=== PATIENT | female | born 1970 | race Caucasian/White ===

== ENCOUNTER 2021-07-11 12:05 | Day surgery (SDC) | payer OTHER, SELFPAY ==
--- NOTE | 2021-07-04 17:03 | PCM.HP.BLA ---
History and Physical Date of Admission: 07/11/21 HPI: The patient is a 51 year old female presenting for pre-operative visit. 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 Procedure discussed along with risks, benefits and complications. Other alternatives discussed for management. Consent form signed? Yes. ? ? PAST MEDICAL HISTORY PAST MEDICAL HISTORY Diagnosis Date ? Allergic rhinitis, cause unspecified ? ? Breast cancer (HCC) 2020 ? Encounter for insertion or removal of intrauterine contraceptive device 07/12/2006 ? Mirena ? Factor 5 Leiden mutation, homorozygous (HCC)--confirmed 2020 ? Hypertension ? ? with 1st only ? Meniere disease ? ? Snoring ? ? Unspecified asthma(493.90) ? ? ? PAST SURGICAL HISTORY PAST SURGICAL HISTORY Procedure Laterality Date ? BX BREAST NEEDLE CORE W/O IMAGING GUIDANCE SPX Left 02/13/2021 ? DELIVERY ONLY ? ? ? , low cervical ? CLSR VESICOVAGINAL FISTUL AABDL APPROACH ? ? ? COLONOSCOPY FLX DX W/COLLJ SPEC WHEN PFRMD ? 06/02/2018 ? Colonoscopy ? DILATION & CURETTAGE DX&/THER NONOBSTETRIC ? 1997 ? Dilation & curettage ? EXC CYST/ABERRANT BREAST TISSUE OPEN 1/> LESION ? 1990 ? right breast ? INSERT INTRAUTERINE DEVICE ? 07/12/2006, 06/2011,08/03/2016 ? Mirena ? PULMONARY FUNCTION TEST ? 07/02/1998 ? ? ? CURRENT MEDICATIONS Current Outpatient Medications Medication Sig Dispense Refill ? ProAir RespiClick 90 mcg/actuation breath activated (albuterol sulfate) Inhale 2 Puffs as instructed as needed for wheezing/shortness of breath. 1 Each 1 ? Cholecalciferol, Vitamin D3, (D3-2000) 50 mcg (2,000 unit) cap ? Cetirizine (ZYRTEC) 10 mg cap Take 1 capsule by mouth as needed. ? ? ? triamterene-hydrochlorothiazide 37.5-25 mg per capsule Take 1 capsule by mouth as needed. ? ? ? levonorgestrel (MIRENA) 20 mcg/24 hr (5 years) IUD 1 Each by INTRAUTERINE route as directed. 1 Each 0 ? CALCIUM ORAL Take by mouth. GUMMY/CHEWABLE ? MULTIVITAMIN TAB Take by mouth. ? ? 0 ? peg 3350-Electrolytes (GOLYTELY) 236-22.74-6.74 -5.86 gram suspension Refer to printed prep instructions from your provider. 4000 mL 0 ? mupirocin (BACTROBAN) 2 % ointment Apply thin layer to incision twice daily (Patient not taking: Reported on 07/03/2021 ) 30 g 1 ? albuterol 90 mcg/Actuation INHALATION Aero prn (Patient not taking: Reported on 07/03/2021) 3 3 ? No current facility-administered medications for this visit. ? ? ALLERGIES: Dust Mites, Peanuts, Pollen, and Soybeans ? PERSONAL HISTORY: SOCIAL HISTORY Social History ? Tobacco Use ? Smoking status: Never Smoker ? Smokeless tobacco: Never Used Vaping Use ? Vaping Use: Never used Substance Use Topics ? Alcohol use: Yes ? ? Comment: weekly ? Drug use: No ? FAMILY HISTORY: FAMILY HISTORY FAMILY HISTORY Problem Relation Age of Onset ? other (High cholesterol) Mother ? ? Skin Cancer Mother ? ? Hypertension Father ? ? Diabetes Father ? ? type 2 ? other (High cholesterol) Father ? ? other (Other) Father ? ? polyneuropathy ? other (Abdominal Aortic Aneurysm) Father ? ? repaired ? Skin Cancer Father ? ? Factor 5 Leiden Sister ? ? heterozygous; had DVT ? Colon Cancer Paternal Grandmother 75 ? Heart Paternal Grandfather ? ? Breast Cancer No Family History ? ? Ovarian cancer No Family History ? ? ? REVIEW OF SYMPTOMS: GENERAL: denies fevers or chills ENDOCRINOLOGY: has not been on steroids Cardiology : denies palpitations or chest pain Respiratory: denies SOB or cough Hematology: denies history of prolonged bleeding or easy bruising or VTE Allergy: Denies history of personal or family history of allergy to anesthesia ? PHYSICAL EXAMINATION: ? VITALS: Blood pressure 156/84, weight 218 lb (98.9 kg), last menstrual period 08/17/2016. ? GENERAL: The patient is well nourished, well hydrated in no acute distress. , The patient is oriented to time, place, and person. NECK: Supple. No lynphadenopathy, normal thyroid, no thyromegaly. LUNGS: Clear to auscultation bilaterally. no wheezes, rhonchi or rales HEART: Regular rate and rhythm, Normal heart sounds and No murmurs or gallops ? 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 PLAN: The risks/benefits/alternatives and personal involved for the planned laparoscopic bilateral salpingo-oophorectomy were reviewed with the patient. Her questions were answered to her satisfaction and she desires to proceed. Consent was signed. I reviewed with her postop instructions and expectations. She will receive Lovenox prophylaxis preoperatively due to factor V Leiden deficiency. ? ? Assessment & Plan Assessment/Plan (1) Homozygous Factor V Leiden mutation: (2) Carcinoma of left breast, estrogen and progesterone receptor positive:
[2021-07-11 12:53] VITALS: BP 152/90; PULSE 88; RESP 16; TEMP 36.8; O2SAT 99; BMI 33.5
[2021-07-11 12:54] LABS: Internal QC Validated? YES +Cl - CLEAR BKGD; Pregnancy, Urine Negative Negative
[2021-07-11] MEDS: Enoxaparin 40 MG/0.4 ML Syringe SC (13:04)
[2021-07-11] MEDS: Lactated Ringers 1,000 ML 75 ML IV (13:16)
--- NOTE | 2021-07-11 13:45 | FALS_PTH ---
PATIENT: VERNON KELLEY [place] [facility] [id number] AGE/SX: 51/F ROOM: RE07/11/[address]: Dr. Kimber Sanchez MD : 1970 BED: DIS: 07/11/2021 SPEC #: [id number] RECD: 07/11/21 14:40 STATUS: NASEEM REPaul #: [id number] BRANDIN: 07/11/21 13:[address]: Kimber Sanchez DEPT: SURGICAL PATHOLOGY RECD BY: Dea Wooten ENTERED: 07/12/21 09:17 SP TYPE: FALL TUBES OTHR DR: Dr. Angelica Webber MD Tissues: Fallopian tube Procedures: Surgery Specimen Level IV HEADER OPERATION: Laparoscopic salpingo-oophorectomy, IUD removal PRE-OP DIAGNOSIS: Carcinoma of left breast, ER and UT receptor positive TISSUE SUBMITTED: Bilateral fallopian tubes and ovaries MICROSCOPIC DIAGNOSIS Right and left fallopian tubes and ovaries, salpingo-oophorectomies: Ovary with corpora albicantia and corpus luteal cysts. Fallopian tube ? benign paratubal cyst. See comment. AM:hiro 07/13/2021 COMMENT The benign paratubal cyst may represent focal hydrosalpinx. Clinical correlation is suggested. MICROSCOPIC DESCRIPTION Slides are reviewed. GROSS DESCRIPTION Received in fixative is one container labeled with the patient's name and designated bilateral fallopian tubes and ovaries. The specimen consists of a fallopian tube with adjacent attached ovary. This ovary is light arriaza and crinkled in appearance measuring 3 x 2.2 x 1 cm. Serial sections of this ovary do not reveal mass lesions. The adjacent fallopian tube measures 6 cm in length and contains a normal fimbriated end. The average diameter of this fallopian tube is 0.7 cm. Present free in the container is a second cystic ovary measuring 4 x 2.2 x 1.5 cm. Serial sections reveal multiple cysts ranging in size from 0.5 to 2 cm. Also present free in the container is a fallopian tube measuring 4 cm in length and 0.5 cm in average diameter and containing a normal fimbriated end. Attached to this fallopian tube in its mid portion are two cysts ranging in size from 1 to 2.5 cm in greatest dimension. Melt Helper sections are submitted in five cassettes as follows: 1 ? ovary and fallopian tube (attached), 2 & 3 ? ovary free in container, 4 & 5 ? fallopian tube and cyst free in container. / AM:hiro 07/12/2021 TC:5 CPT: 71808 x2
--- NOTE | 2021-07-11 13:46 | PCM.DC ---
Discharge Instructions Diet Discharge Diet: No restrictions Activity May resume sexual activity in: 1 week Dressing / Incision Call your doctor if your incision/area has: Sudden Increased Bleeding and Foul Smelling Discharge Call your doctor if you observe: Fever of 101 or Higher Cleanse incision/area with: Soap & Water (Your incisions have skin glue and it can get wet. Leave on until it falls off) Follow Up Care Please Follow Up With: Kimber Sanchez MD When: In my office or virtual visit in 1-2 weeks or as needed Test Results: Test results from this visit will be discussed in further detail at your follow-up appointment, if applicable. Discharge Plan Admission Attending Provider: Kimber Sanchez Primary Care Provider: Angelica Webber Discharge Orders/Prescriptions Prescriptions: New ibuprofen [ibuprofen] 600 MG tablet 600 mg PO Q6H PRN (Reason: Pain) 20 Days Qty: 60 RF: 1 Continued albuterol sulfate 90 mcg/actuation Hfa Aerosol Inhaler 1 inh INHALATION Q6H PRN (Reason: SOB) RF: 0 Zyrtec 10 mg Capsule 10 mg PO DAILY PRN (Reason: ALLERGIES) RF: 0 Referrals / Follow Up: Angelica Webber MD [Primary Care Provider] - Disposition Disposition (needs filled in before D/C Order can be placed): Home, Self Care
[2021-07-11] MEDS: Bupivacaine Mpf 0.5% 30 ML VIAL (13:58)
[2021-07-11 14:00] VITALS: BP 105/66; BP 152/90; PULSE 66; RESP 16; O2SAT 96
--- NOTE | 2021-07-11 14:19 | PCM.OPRPT ---
Problems Associated Problem List Diagnoses (1) Carcinoma of left breast, estrogen and progesterone receptor positive: Report of Operation Date of Procedure: 07/11/21 Pre-Operative Diagnosis: estrogen/progestin positive breast cancer, desires surgical menopause, IUD removal Post-Operative Diagnosis: same Surgery/Procedure Performed:: Laparoscopic bilateral salpingo-oophorectomy and IUD removal Description of Surgical Findings:: Enlarged globular uterus, normal-appearing tubes and ovaries. Otherwise unremarkable peritoneal cavity. Normal vagina and cervix. Surgeon: Kimber Sanchez pipeline construction inspector: Jemima Razo Type of Anesthesia: General Anesthesiologist: Roberto Kaur Special Medications: none Specimen's removed: bilateral tubes and ovaries Drains: none Estimated Blood Loss (mL): 10 Fluids Replaced: 700 Description of Procedure: The patient was taken to the operating room where she was prepped and draped in the dorsolithotomy position. A weighted speculum was placed in the vagina and the anterior lip of the cervix was grasped with a tenaculum. The Mirena IUD was removed and confirmed to be intact. The Rachel uterine manipulator was placed and the remainder of the instruments were removed from the vagina. Attention was turned to the abdomen. All port sites were infiltrated with 0.5% Marcaine before skin incisions were made. A 5 mm [intraumbilical] incision was made. The anterior abdominal wall was tented up with 2 towel clamps while a 5 mm blade less trocar and sleeve were [directly inserted]. Intraperitoneal placement was confirmed with the laparoscope. The pneumoperitoneum was created and the underlying abdominal contents were intact. The patient was placed in Trendelenburg. Right and left lower quadrant ports were placed under direct visualization lateral to the inferior epigastric vessels. The bowel was swept away and the above findings were noted. The LigaSure device was used to clamp seal and transect the infundibulopelvic ligaments after the ureters were identified. The antimesenteric portions of the tube were carried through the broad ligament over to the cornual insertion. The utero-ovarian ligaments were then clamped, sealed and transected with the LigaSure device. The pedicles were hemostatic. The same procedure was performed on the contralateral side. The umbilical incision was extended and an Endo Catch bag was placed through this and the specimens were placed inside and removed without difficulty. The pedicles were again examined and found to be hemostatic. The lateral ports were removed under direct visualization and no active bleeding was noted. The pneumoperitoneum was released. The umbilical site was closed with 0 Vicryl suture with the laparoscopic closure device. The skin incisions were closed with Monocryl suture in a subcuticular fashion and skin glue by the ANTENNA SPECIALIST. The vaginal instruments were removed and the vaginal sweep was completed by me. The procedure was performed by me with assistance other than as dictated above. All sponge and needle counts were correct and the patient was taken to the recovery room in stable condition. The nutritional assistant provided camera guidance, and she manipulation during the procedure Grafts/Implants Used: none Procedure Start Time: 13:58 Procedure Stop Time: 14:24 Complications none Admit VTE Documentation VTE Present on Admission: No VTE Mechan Device Prophylaxis: SCD's VTE Pharm Prophylaxis ordered?: No Reason prophylaxis not ordered:: Procedure Not Indicated
[2021-07-11 14:39] VITALS: BP 123/90; BP 152/90; PULSE 67; RESP 15; TEMP 36.7; O2SAT 99
[2021-07-11 14:45] VITALS: BP 115/63; BP 152/90; PULSE 60; RESP 16; O2SAT 100
[2021-07-11 15:10] VITALS: BP 123/71; BP 152/90; PULSE 66; RESP 18; TEMP 37.1; O2SAT 98
[2021-07-11 16:32] VITALS: BP 108/51; BP 152/90; PULSE 63; RESP 16; TEMP 36.7; O2SAT 95
== END 2021-07-11 23:59 | disposition home or self-care (01) ==
LOC: SDC 12:10 → AC 12:12
PROVIDERS: PCP Internal Medicine; Referring Provider Obstetrics & Gynecology; Visit Provider Obstetrics & Gynecology
PROC: (CPT 58661; principal; 2021-07-11 13:30)
DX: N83.292 Other ovarian cyst, left side (principal); D68.51 Activated protein C resistance; C50.912 Malignant neoplasm of unspecified site of left female breast; N83.291 Other ovarian cyst, right side; N83.12 Corpus luteum cyst of left ovary; N83.11 Corpus luteum cyst of right ovary; N83.8 Other noninflammatory disorders of ovary, fallopian tube and broad ligament; J45.909 Unspecified asthma, uncomplicated; Z17.0 Estrogen receptor positive status [ER+]; Z90.12 Acquired absence of left breast and nipple; Z79.899 Other long term (current) drug therapy; Z30.432 Encounter for removal of intrauterine contraceptive device
CPT/HCPCS: 58661; 58301; 00840; 81025; 88302; 88305; J7120; J2405

== ENCOUNTER 2024-04-06 12:00 | Outpatient (RCR) | payer OTHER, SELFPAY ==
--- NOTE | 2024-03-08 23:00 | HP.PTEVAL ---
Patient's Visit Information Visit Information Visit Information: VERNON ELLINGTON is a 54 year old F referred to Physical Therapy by NIKIA Rea with a diagnosis of L SCIATICA. Date of Evaluation: 02/24/24 Physical Therapist: Di Patel PT, Cert MDT Visit Plan Frequency: 2-3x /Week Duration: 4-6 Weeks Plan: Neutral Spine Core Stability Exercises. Anterior pelvic tilt correction. B hip strengthening. B LE Strengthening. Instruction in Proper Body Mechanics for ADL's and Appropriate Activity Modifications to help decrease back pain. HEP Instruction. Subjective Subjective: Work/Leisure: STAY AT HOME MOM. [place]BIES - [place]. BAKING AND COOKING. Disability: NO Present symptoms: LEFT LOW BACK PAIN. L LE INTERMITTENT WEAKNESS. Present since: 2022 Pain Scale: WORST 7/10, LEAST 0/10 Currently: 5/10 Is it getting better, worse or staying the same: GETTING WORSE Commenced as a result of: NO APPARENT REASON Symptoms at onset: LOW BACK PAIN Worse: LIFTING, YARD WORK, PROLONGED STANDING, PROLONGED HOUSEWORK, THE DAY PROGRESSES, IF I OVER-DO-IT. Better: DUEL ACTION ADVIL, LAYING ON A HEATING PAD, PUTTING PILLOW UNDER LEGS. BETTER IN THE MORNING. DOING PRESS UPS - NB/NW AT THE TIME Disturbed sleep: STABBING WHEN TURNING. Previous history/Previous treatment: NO PRIOR TREATMENT. NO CHIROPRACTIC, NO INJECTIONS AND NO BACK SURGERY. Treatment this episode: NONE Coughing/sneezing/straining: NO EFFECT THAT PATIENT IS AWARE OF. Gait: NO FALLS. FEELS LIKE LLE MIGHT GIVE OUT WHEN PAIN IS FLARED UP BUT LEG HAS NOT GIVEN OUT. Bowel or Bladder Dysfunction: NO Accidents: NO Unexplained weight loss: NO Imaging: BONE DENSITY BUT NO LUMBAR X-RAY OR MRI. 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 USES SPINNING BIKE. LIKES YOGA. PMH/Recent major surgery: BREAST CANCER FEB 2021 TREATED WITH L MASECTOMY. Tinnitus Blood disorder Meniere's disease Asthma Hx of left mastectomy Objective Objective: Sitting/Standing Posture: R ILIAC CREST HIGHER THAN L. NO RELEVANT LATERAL SHIFT. ANT PELVIC TILT. Active Correction of posture: ABLE TO PARTIALLY CORRECT AND INCREASE PAIN BUT PASSIVE SUPPORT GREATLY REDUCES PAIN TO 1/10 IN CLINIC TODAY. Other Observations: THIS PATIENT AMBULATES INDEP INTO PHYSICAL THERAPY WITH SLOW ANTALGIC GAIT PATTERN WITHOUT AD OR LOB. SHE IS UNABLE TO TRANSFER FROOM SIT TO STAND WITHOUT UE ASSIST. SHE HAS DIFFICULTY INITIATING GAIT AFTER SITTING THEN GAIT IMPROVES AFTER A FEW STEPS. SHE WALKS AND STANDS WITH INCREASED TRUNK FLEXION. Sensory deficit: RANJAN LE LIGHT TOUCH SENSATION IS GROSSLY INTACT AND SYMMETRICAL ROM deficit: RANJAN LE ROM IS WFL Motor deficit: RANJAN LE STRENGTH GROSSLY 5/5 WITH MMT'ING EXCEPT HIPS 4/5 Reflexes: UNABLE TO ELICIT RANJAN LE DTR'S. Dural Signs: NEGATIVE RANJAN LE'S. Lumbar mvmt loss: flex - NIL ext - MIN R SG - MOD L SG - MIN PATIENT C/O INCREASED PAIN WITH LUMBAR ROM TESTING INTO EXT, AND RANJAN SG'ING AND IT REMAINS WORSE A RESULT. Core strength: POOR Palpation: NO ACUTE LUMBAR OR SACRAL REGION TENDERNESS TREATMENT: NEUROMUSCULAR REEDUCATION - RETRAINING OF MVMT AND POSTURE FOR SITTING, LYING AND STANDING ACTIVITIES. PATIENT IS LEAVING TO GO ON A CRUISE. Balance/Special Test Scores Oswestry Low Back Score: 7 Goals Goal 1:: DECREASE C/O L LOW BACK AND L LE SX'S BY AT LEAST 50% TO EASE ADL'S. Goal Time Frame: 4-6 Weeks Goal 2:: IMPROVE LIFTING, WALKING, STANDING, AND WORK/HOMEMAKING FUNCTION Goal Time Frame: 4-6 Weeks Goal 3:: INSTRUCT IN PROPHYLAXIS Goal Time Frame: 4-6 Weeks Rehabilitation Potential Physical Therapy Diagnosis: C/O L LOW BACK PAIN, CORE WEAKNESS, RAJNAN HIP WEAKNESS, DIFFICULTY WALKING AND DECREASED LUMBAR ROM. Anticipated Interventions Patient/Client Instruction: Educate patient on: Condition, Plan of Care and Risk Factors For the Purpose of:: To improve self management Therapeutic Exercise to Include: Strength training, Body mechanics, Postural training, Neuromotor development and Dynamic Lumbar Stabilization For the Purpose of:: To decrease pain, To improve muscle performance and motor function, To increase tolerance to activity/condition/position, To improve ability of physical actions for home/community/work/leisure, To improve gait and locomotor functions and To improve self management Cryotherapy (ice pack, ice massage): Yes Thermo therapy (hot pack): Yes For the Purpose of:: To decrease pain, To decrease swelling/inflammation and To improve nutrient delivery to tissue Text: Thank you for the opportunity to evaluate your patient. For Medicare and Medicare HMO plans, please review the plan of care and approve it. It will need to be FAXED BACK to us at [phone] for Medicare purposes. For Medicare only, by signing this I certify the plan of care. Please let me know if there are questions or concerns regarding this plan of care. Physician Signature: Date:
--- NOTE | 2024-04-06 12:32 | HP.PTDCSUM ---
Discharge Summary D/C summary: It has been my pleasure to treat VERNON ELLINGTON referred by Maureen Bernal NP-C, with the diagnosis of L SCIATICA for a total of 10 visit(s). Discharge Date: 04/06/24 Please see the following information for a summary of their discharge status. Subjective Subjective: PATIENT REPORTS SHE REALIZES NOW WHAT CAUSES HER TO HAVE BACK PAIN AND SO SHE MODIFIES TO AVOD THE PAIN. SHE ALSO REPORTS SHE KNOWS HOW TO WORK ON STRENGTHENING HER CORE NOW. Pain R THIGH: Pain Intensity (Out of 10): 0 L BACK: Pain Intensity (Out of 10): 1 L LE: Pain Intensity (Out of 10): 0 Overall Improvement % Improvement: 95 Objective Objective/Function: PATIENT WAS SEEN TODAY FOR RE-ASSESSMENT OF PROGRESS TOWARD THE SET PT GOALS AND THE NEED FOR FURTHER PHYSICAL THERAPY VS READINESS FOR DISCHARGE. ALL GOALS HAVE BEEN MET AND PATIENT IS APPROPRIATE FOR AND AGREEABLE TO D/C. UPON EXAM TODAY: Motor deficit: RANJAN LE STRENGTH GROSSLY 5/5 Dural Signs: NEGATIVE RANJAN LE'S. Lumbar mvmt loss: flex - NIL ext - MIN R SG - MOD L SG - MIN PATIENT DENIES PAIN WITH LUMBAR ROM TESTING TODAY. Core strength: POOR Goals Goal 1:: DECREASE C/O L LOW BACK AND L LE SX'S BY AT LEAST 50% TO EASE ADL'S. Goal Progress: Goal Met Goal 2:: IMPROVE LIFTING, WALKING, STANDING, AND WORK/HOMEMAKING FUNCTION Goal Progress: Goal Met Goal 3:: INSTRUCT IN PROPHYLAXIS Goal Progress: Goal Met Plan Plan: D/C D/C Information d/c sentence: If there are questions or concerns regarding this patient's physical therapy, please feel free to call me at [phone]. Thank you for the referral of this patient. Sincerely, Di Patel, PT, Cert MDT Balance/Gait/Functional tests Balance/Special Test Scores Oswestry Low Back Score: 3 Improvement % Improvement: 95
== END 2024-04-06 19:00 | disposition home or self-care (01) ==
LOC: PT 12:00
PROVIDERS: PCP Internal Medicine; Referring Provider Internal Medicine; Visit Provider Internal Medicine
DX: M54.32 Sciatica, left side (principal)
CPT/HCPCS: 97110; 97162; 97530